=== PATIENT | female | born 1995 | race Two or more races ===

== ENCOUNTER 2021-02-01 15:52 | Emergency (ER) | payer MEDICAID, OTHER ==
[~2021-02-01] VITALS: Ht 162.6 cm; Wt 83.9 kg
[2021-02-01 16:24] VITALS: BP 154/114
[2021-02-01] MEDS ORDERED: LORazepam 0.5 MG TAB PO ONE (17:15)
== END 2021-02-01 18:37 | disposition home or self-care (01) ==
LOC: ER 15:52
DX: F41.9 Anxiety disorder, unspecified (principal)
CPT/HCPCS: 93005